=== PATIENT | female | born 1970 | race African-American/Black ===

== ENCOUNTER 2017-08-06 12:30 | Inpatient (IN) | payer MEDICARE ==
[2017-08-06 13:18] LABS: ANION GAP 13.4 mmol/L (8-16); BILIRUBIN - TOTAL 0.5 mg/dL (0.2-1.3); CARBON DIOXIDE 30.2 mmol/L (21.0-32.0); CREATININE - SERUM 1.2 mg/dL (0.6-1.3); POTASSIUM - SERUM 3.6 mmol/L (3.5-5.1); PROTEIN - SERUM 7.8 g/dL (6.4-8.2)
[2017-08-06 13:35] LABS: APPEARANCE CLOUDY (CLEAR); BACTERIA MANY /hpf (NONE SEEN); BILIRUBIN NEGATIVE (NEGATIVE); COLOR YELLOW (YELLOW); GLUCOSE NEGATIVE (NEGATIVE); KETONE MODERATE mg/dL (NEGATIVE); MUCUS >1+ /lpf (NONE SEEN); NITRITE NEGATIVE (NEGATIVE); PROTEIN TRACE mg/dL (NEGATIVE); RED CELLS - URINE 0-5 /hpf (0-5); SPECIFIC GRAVITY 1.015 (1.005-1.020)
[2017-08-06 13:48] LABS: BASOPHILS 0.2 % (0-2); EOSINOPHILS 0.4 % (0-7); HEMATOCRIT 41.3 % (36.0-48.0); HEMOGLOBIN 13.4 g/dL (12-16); IMMATURE GRANULOCYTES 0.4 % (0-5); LYMPHOCYTES 14.3 % (15-50); MCH 32.5 pg (26.0-34.0); MCHC 32.4 g/dL (31.0-37.0); MCV 100.2 fL (80.0-100.0); MEAN PLATELET VOLUME 10.5 fL (7.4-10.4); MONOCYTES 8.5 % (2-11); NEUTROPHILS 76.2 % (40-80); PLATELET COUNT 236 10x3/uL (130-400); RBC 4.12 10x6/uL (4.00-5.40); RDW 13.2 % (11.5-14.5); WBC 9.5 10x3/uL (4.8-10.8)
[2017-08-06 19:00] VITALS: BP 146/93
[2017-08-06] MEDS ORDERED: SCOPOLAMINE (20:39)
[2017-08-06] MEDS ORDERED: PHENERGAN25 M1 PO (20:40)
[2017-08-06] MEDS ORDERED: ZOFRAN ODT4 MG/UDTAB (20:41)
[2017-08-06] MEDS ORDERED: OMEPRAZOLE20 M1 PO (20:42)
[2017-08-06] MEDS ORDERED: HYDROCODON-ACE1 EAC7 PO (20:42)
[2017-08-06] MEDS ORDERED: KLONOPIN1 MG PO (20:44)
[2017-08-06] MEDS ORDERED: NEURONTIN 300300 MG PO (20:45)
--- NOTE | 2017-08-06 20:50 | NUR ---
REC FROM ER VIA WC. ALERT/ORIENTED X4. AMBULATED TO BED WITH STEADY GAIT. ER UNSUCCESSFUL AT ACCESSING VEIN FOR IV. PLACED ON TELEMETRY, SHOWS 108 ST ON MONITOR. C/O NAUSEA/VOMITING X 3 DAYS AND ABD PAIN. NPO PER ORDER. ORIENTED TO ROOM AND CALL LIGHT.
--- NOTE | 2017-08-06 23:30 | NUR ---
CALLED DR ANAND RE: MULTIPLE UNSUCCESSFUL ATTEMPTS FOR IV PLACEMENT. OBTAIN ORDER FOR PHENERGAN 25MG IM Q4H PRN AND OK TO PLACE IV IN FOOT.
--- NOTE | 2017-08-07 00:30 | NUR ---
ER NURSE "RODDY" UNSUCCESSFUL AT SITING IV; TWO ICU NURSES ALSO UNSUCCESSFUL AT SITING IV.
[2017-08-07 00:46] VITALS: BP 146/93; BMI 38.6
[2017-08-07 04:32] VITALS: BP 126/81
--- NOTE | 2017-08-07 05:01 | NUR ---
RESTING QUIETLY WITH EYES CLOSED. NO EPISODES OF VOMITING AFTER ADMINISTRATION OF PHENERGAN IM.
[2017-08-07 06:13] LABS: ALBUMIN 3.2 g/dL (3.4-5.0); ANION GAP 13.1 mmol/L (8-16); BILIRUBIN - DIRECT 0.14 mg/dL (0.00-0.30); BILIRUBIN - INDIRECT 0.45 mg/dL (0.00-1.00); BILIRUBIN - TOTAL 0.59 mg/dL (0.2-1.3); CALCIUM 8.2 mg/dL (8.5-10.1); CARBON DIOXIDE 29.1 mmol/L (21.0-32.0); CREATININE - SERUM 1.1 mg/dL (0.6-1.3); POTASSIUM - SERUM 3.2 mmol/L (3.5-5.1); PROTEIN - SERUM 7.3 g/dL (6.4-8.2)
--- NOTE | 2017-08-07 06:38 | NUR ---
DR ANAND CALLED REQUESTING TO CONTACT ANESTHESIOLOGIST VORTEX OPERATOR TO PLACE IV. I CALLED MILAGRO ACOSTA AND HE STATED HE WAS NOT ON DUTY UNTIL 7 AM. CALLED SURGERY AND INFORMED BY "SHIRLEY" ONE ANESTHESIOLOGIST IS WORKING ON A TEGAN CASE AND THE OTHER WITH DR GARNICA'S. SHE STATED IT WILL PROBABLY BE APPROX 30 MIN UNTIL ONE CAN COME.
--- NOTE | 2017-08-07 06:43 | NUR ---
RECEIVED CALL FROM SHIRLEY STATING AND [employer] CONSULTANT WILL COME AND GET PATIENT TO TAKE TO SURGERY TO PLACE IV. CONSENT NOT NECESSARY.
--- NOTE | 2017-08-07 07:10 | NUR ---
RECIEVD REPORT ON PATIENT, PATIENT IS ALERT AND ORIENTED AT THIS TIME. PATIENT IS ST ON MONITOR WITH A RATE OF 118. PATIENT IS NAUSEATED AT THIS TIME. ANESTHESIA IS COMING TO GET PATIENT TO START AN IV. PATIENT DENIES ANY NEEDS AT THIS TIME. WILL CONT TO MONITOR. CPOC
--- NOTE | 2017-08-07 07:15 | NUR ---
PATIENT GONE TO ANESTHESIA FOR IV PLACEMENT.
[2017-08-07 08:48] VITALS: BP 155/94
--- NOTE | 2017-08-07 10:00 | NUR ---
PATIENT VOMITTING, COLD RAG GIVEN. PHENAGREN HAS BEEN GIVEN, PATIENT ON ZOFRAN DRIP. WILL CONT TO MONITOR. CPOC
[2017-08-07 11:04] VITALS: BMI 38.6
--- NOTE | 2017-08-07 11:51 | NUR ---
PATIENT C/O PAIN IN HER BACK AND LEGS. NO PAIN MEDICATION ON EMAR. PAGED DR. WALL
[2017-08-07 12:04] VITALS: BP 133/92
--- NOTE | 2017-08-07 14:03 | NUR ---
PATIENT RESTING, SECOND BAG OF KCL HUNG PER PROTOCOL. BED LOW AND LOCKED. CALL LIGHT IN REACH. CPOC
--- NOTE | 2017-08-07 14:33 | NUR ---
PATIENT RESTING, NAD NOTED, AROUSES TO VOICE STATES PAIN IS GETTING BETTER. 04/21. WILL CONT TO MONITOR
--- NOTE | 2017-08-07 14:50 | NUR ---
PATIENT REFUSED SCDS, STATES SHE WALKS AROUND THE ROOM.
[2017-08-07 16:17] VITALS: BP 145/85
--- NOTE | 2017-08-07 16:45 | NUR ---
PATIENT GIVEN PHENAGREN FOR NAUSEA AND VOMITTING. DR MORA AT BEDSIDE. CPOC
--- NOTE | 2017-08-07 18:01 | NUR ---
PATIENT SLEEPING, AROUSES TO VOICE, STATED NAUSEA IS BETTER. DENIES ANY NEEDS. CPOC
--- NOTE | 2017-08-07 19:30 | NUR ---
PT IN BED. FAMILY AT BEDSIDE DENIES NEEDS AT THIS TIME WILL CONTINUE TO MONITOR
[2017-08-07 21:18] VITALS: BP 126/79
--- NOTE | 2017-08-08 02:17 | NUR ---
PT LYING IN BED, RESTING COMFORTABLY, EASILY ROUSABLE TO VERBAL STIMULI. CONTINUE TO MONITOR CLOSELY. BED LOW, CALL LIGHT IN REACH, SIDE RAILS X 2, HOB 25-30 DEGREES.
[2017-08-08 06:52] LABS: ALBUMIN 2.8 g/dL (3.4-5.0); ANION GAP 10.3 mmol/L (8-16); BILIRUBIN - DIRECT 0.12 mg/dL (0.00-0.30); BILIRUBIN - INDIRECT 0.39 mg/dL (0.00-1.00); BILIRUBIN - TOTAL 0.51 mg/dL (0.2-1.3); CALCIUM 7.9 mg/dL (8.5-10.1); CARBON DIOXIDE 32.9 mmol/L (21.0-32.0); CREATININE - SERUM 1.1 mg/dL (0.6-1.3); POTASSIUM - SERUM 3.2 mmol/L (3.5-5.1); PROTEIN - SERUM 6.5 g/dL (6.4-8.2)
--- NOTE | 2017-08-08 07:08 | HP ---
PATIENT: SALLY GONZÁLES MEDICAL RECORD: [id number] ACCOUNT: [id number] LOCATION:[address] : 74 ADMISSION DATE: 08/06/17 HISTORY AND PHYSICAL EXAMINATION HISTORY OF PRESENT ILLNESS: 47-year-old black female who states that a week ago, she was exposed to a child with vomiting and diarrhea. Her daughter got better, but she continued to have vomiting for a few days and diarrhea. The diarrhea ultimately resolved, but she continued to have nausea. She was seen at 4 different outpatient clinics and sent home with Phenergan and Zofran. She did not improve and ultimately was admitted to the [facility] in [place] 4 days before this admission. She states she had IV fluids. A CT scan showing a hiatal hernia. She felt better, was discharged yesterday became sick again last night, and came to [place] for reevaluation. She apparently has seen Dr. Nick in the past and had a remote EGD. 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 PAST SURGICAL HISTORY: Laparoscopic cholecystectomy. She has had a skin graft on both arms. Sebaceous cyst excision. She had . FAMILY HISTORY: Father in MVA. Mother of a heart attack. PAST MEDICAL HISTORY: Lupus, Sjogren's syndrome, hypertension, hiatal hernia, hysterectomy, sparing 1 tube and ovary remotely and an IUD. She states she recently was given Flagyl for vaginal infection prior to feeling nauseated. ALLERGIES: IODINE AND SHELLFISH. SOCIAL HISTORY: She is , has and 2 daughters. HOME MEDICATIONS: Phenergan 25 q.4 hours for nausea, gabapentin 300 mg t.i.d., [place] 5/325 one q.6 hours for pain, Klonopin 1 mg b.i.d. p.r.n. anxiety, Zofran 4 mg Reditabs 2 tabs p.r.n., omeprazole 20 mg a day, amlodipine 5 mg daily, and metoprolol dose unknown. REVIEW OF SYSTEMS: GENERAL: No fever or fatigue, has had poor appetite due to nausea. HEENT: No recent visual change, sinus congestion, or sore throat. RESPIRATORY: No SOB or cough. CARDIAC: No exertional or rest chest pain, claudication, or edema. GASTROINTESTINAL: Diarrhea has resolved, not having intermittent vomiting and nausea. No hematemesis, bright red blood per rectum. Denies fatty food intolerance. ENDOCRINE: Denies polyuria, polydipsia, heat or cold intolerance. NEUROLOGIC: No history of stroke, TIA, or vascular headaches. PSYCHIATRIC: Denies depress mood. PHYSICAL EXAMINATION: VITAL SIGNS: The patient is afebrile. Blood pressure 130/80, heart rate 80. GENERAL: The patient is alert and oriented and fairly comfortable, lying on ED gurney. HEENT: Unremarkable except for dry mucous membrane. Her eyes were clear. NECK: Supple. CHEST: Clear. HEART: Mildly tachycardic. HISTORY AND PHYSICAL [id number] GONZÁLES,SALLY ABDOMEN: Obese, soft, minimally tender in left lower quadrant. No rebound. Bowel sounds are active. PELVIC: Deferred. EXTREMITIES: No gross edema. INTEGUMENT: No rash. SKIN: Fair turgor. PSYCHIATRIC: Denies depressed mood. LABORATORY DATA: Shows white count of 9500 with normal diff, H&H of 13 and 41 respectively. MCV is 100.2. Chemistry unremarkable. Creatinine is 1.2. Liver function is normal, but amylase is 259. Urinalysis is cloudy, moderate ketones, 2+ blood, 5-10 white cells, many bacteria. IMAGING: CT scan of the abdomen, according to Dr. Guzman shows a hiatal hernia with no acute changes. ASSESSMENT: 1. Recurrent nausea and vomiting, etiology unknown. 2. Post-cholecystectomy. 3. Hypertension. 4. Obesity. 5. Anxiety. 6. Chronic pain. 7. Possible urinary tract infection. PLAN: Culture urine. She will be placed on antibiotics empirically. placed on IV fluids and antiemetics. Further workup pending clinical course. TRANSINT:[id number] Voice Confirmation ID: [id number] DOCUMENT ID: [id number] RYAN ANAND MD at 0708 CC: [id number] DICTATION DATE: 08/06/172117 PHOTOENGRAVING SKETCH MAKER: 08/06/17 2332 [place] [id number]
[2017-08-08 07:29] LABS: BASOPHILS 0.1 % (0-2); EOSINOPHILS 1.1 % (0-7); HEMATOCRIT 33.7 % (36.0-48.0); HEMOGLOBIN 11.1 g/dL (12-16); IMMATURE GRANULOCYTES 0.3 % (0-5); LYMPHOCYTES 14.3 % (15-50); MCH 32.3 pg (26.0-34.0); MCHC 32.9 g/dL (31.0-37.0); MEAN PLATELET VOLUME 9.8 fL (7.4-10.4); MONOCYTES 9.9 % (2-11); NEUTROPHILS 74.3 % (40-80); PLATELET COUNT 224 10x3/uL (130-400); RBC 3.44 10x6/uL (4.00-5.40); RDW 13.3 % (11.5-14.5); WBC 7.6 10x3/uL (4.8-10.8)
--- NOTE | 2017-08-08 07:32 | NUR ---
AM ROUNDS - PT IN BED AND AWAKE AT THIS TIME. MONITOR SHOWING SR, HR 95. C/O NAUSEA. PT HAS A ZOFRAN DRIP. PT IS A&O. PT IS ON ROOM AIR. RIGHT IJ, LR AT 100CC/HR. BED AT LOWEST POSITION, CALL SILVA IN USE/REACH, SIDE RAILS UP X2. WILL CONTINUE TO MONITOR
[2017-08-08 08:15] VITALS: BP 117/83
--- NOTE | 2017-08-08 08:54 | NUR ---
UNABLE TO COVER K+ AT THIS TIME. PT IS NPO FOR EGD AT 1030.
[2017-08-08 09:58] LABS: HCG URINE NEGATIVE (NEGATIVE)
[2017-08-08 16:54] VITALS: BP 158/92
--- NOTE | 2017-08-08 17:31 | NUR ---
PT IN BED WITH SISTER AT BEDSIDE. WILL CONTINUE TO MONITOR
[2017-08-08 19:00] VITALS: BP 152/101
--- NOTE | 2017-08-08 19:21 | NUR ---
ASSESSMENT COMPLETE, A&O. RIGHT IJ WITH ZOFRAN INFUSING AT 4.7, DRSG C/D/I. PT DENIES PAIN OR NEEDS, BED LOW, CL IN REACH.
[2017-08-09] VITALS: BP 151/87
--- NOTE | 2017-08-09 00:54 | NUR ---
CHILD CARE ATTENDANT AT BEDSIDE TO OBTAIN VITALS, CALL LIGHT IN REACH. WILL CONTINUE WITH PLAN OF CARE.
--- NOTE | 2017-08-09 02:33 | NUR ---
MORPHINE 2 MG GIVEN AT PT REQUEST FOR C/O PAIN TO LEGS, RATES PAIN AT AN 8 ON PAIN SCALE. POTASSIUM RIDER INFUSING PER PROTOCOL.
[2017-08-09 04:00] VITALS: BP 148/100
--- NOTE | 2017-08-09 05:07 | NUR ---
RESTING WITH EYES CLOSED, RESPERATIONS EVEN, NO S/S DISTRESS NOTED.
[2017-08-09 05:08] LABS: BASOPHILS 0.3 % (0-2); EOSINOPHILS 0.7 % (0-7); HEMOGLOBIN 10.5 g/dL (12-16); IMMATURE GRANULOCYTES 0.1 % (0-5); LYMPHOCYTES 11.9 % (15-50); MCH 32.1 pg (26.0-34.0); MCHC 32.8 g/dL (31.0-37.0); MCV 97.9 fL (80.0-100.0); MEAN PLATELET VOLUME 9.6 fL (7.4-10.4); MONOCYTES 8.6 % (2-11); NEUTROPHILS 78.4 % (40-80); PLATELET COUNT 181 10x3/uL (130-400); RBC 3.27 10x6/uL (4.00-5.40); WBC 7.3 10x3/uL (4.8-10.8)
[2017-08-09 05:33] LABS: ALBUMIN 2.7 g/dL (3.4-5.0); ANION GAP 6.1 mmol/L (8-16); BILIRUBIN - TOTAL 0.4 mg/dL (0.2-1.3); CALCIUM 7.7 mg/dL (8.5-10.1); CARBON DIOXIDE 31.2 mmol/L (21.0-32.0); POTASSIUM - SERUM 3.3 mmol/L (3.5-5.1)
--- NOTE | 2017-08-09 07:16 | NUR ---
AM ROUNDS COMPLETED. INTRODUCED MYSELF TO PT PRIMARY RN FOR TODAYS SHIFT. PT A&O RESTING QUIETLY IN BED. SHIFT ASSESSMENT COMPLETED. PT DENIES ANY CURRENT NEEDS. CL IN REACH, BED IN LOWEST, SIDE RAILS X2 AND BED ALARM ON. WILL CPOC.
[2017-08-09 08:00] VITALS: BP 141/97
--- NOTE | 2017-08-09 08:40 | NUR ---
POTASSIUM HUNG FOR EP REPLACEMENT. PT STATES SHE CANT STOMACH THE ORAL FORM WITHOUT BEING VERY NAUSEATED. PT IS STILL ON ZOFRAN DRIP AND ITS HELPING HOWEVER STILL GETS NAUSEATED AT TIMES. PT C/O PAIN ALL OVER AND WAS PROVIDED WITH PRN PAIN MEDICATION. PT DENIES ANY FURTHER NEEDS AT THIS TIME. CL IN REACH, BED IN LOWEST, SIDE RAILS X2. WILL CPOC.
--- NOTE | 2017-08-09 11:18 | NUR ---
Patient Name: SALLY GAYTAN Admission Status: ER Accout number: [id number] Admission Date: 08-06-2017 : 1970 Admission Diagnosis:NAUSEA WITH VOMITING, UNSPECIFIED Attending: RYAN ANAND Current LOS: 3 Anticipated DC Date: 08-10-2017 Planned Disposition: Home or Self Care Primary Insurance: [facility] Discharge Planning Comments: CM met with patient to assess discharge planning / needs. Patient states she plans to return home where she lives with her . States her home environment is safe. States her , Diego Gaytan will drive her home upon discharge. Denies any discharge needs. Declined home health services. CM served IMM, copy to patient, original in chart. CM will continue to follow and assist PRN with discharge planning / needs. Is the patient Alert and Oriented? Yes * How many steps to enter\exit or inside your home? 3 * PCP Dr Arreola in [place]. * Pharmacy [facility]. * Preadmission Environment Home with Family * ADLs Independent * Equipment None * List name and contact numbers for known caregivers / representatives who currently or will assist patient after discharge: Spouse, Diego Gaytan [phone] * Community resources currently utilized None * Additional services required to return to the preadmission environment? No * Can the patient safely return to the preadmission environment? Yes * Has this patient been hospitalized within the prior 30 days at any hospital? Yes
[2017-08-09 12:00] VITALS: BP 121/82
--- NOTE | 2017-08-09 15:00 | NUR ---
R.IJ TRIPLE LUMEN CVL DRSG CHANGED USING STERILE TECHNIQUE IT WAS STARTING TO PEEL OFF AFTER SHE SHOWERED. PT C/O ABDOMINAL PAIN COMING BACK AND PAIN AT CVL SITE. PROVIDED PT WITH PRN MORPHINE REQUESTED. PT VOICED THANKS AND WANTS TO TRY AND GET SOME REST. NO FURTHER NEEDS AT THIS TIME. CL IN REACH. WILL CPOC.
[2017-08-09 16:00] VITALS: BP 139/86
--- NOTE | 2017-08-09 16:00 | NUR ---
PT WANTING TO TRY A REGULAR DINNER AND SEE IF SHE CAN HOLD IT DOWN. NO CURRENT NEEDS AT THIS TIME. VISITORS AT BEDSIDE. WILL CPOC.
--- NOTE | 2017-08-09 17:33 | NUR ---
POTASSIUM RECHECK CAME BACK AND IS NOW 4.0. NO FURTHER ACTION NEEDED AT THIS TIME. WILL CPOC.
--- NOTE | 2017-08-09 19:26 | NUR ---
PT C/O NAUSEA. ZOFRAN DRIP GOING AT 4.7 TO RIGHT IJ. PT C/O PAIN IN STOMACH BACK LEGS. WILL GIVE ORDERED PAIN MED. PT DENIES ANY OTHER NEEDS. NO S/S OF DISTRESS. WILL CPOC
[2017-08-09 20:00] VITALS: BP 150/99
[2017-08-10] VITALS: BP 166/72
--- NOTE | 2017-08-10 00:20 | NUR ---
PT RESTING IN BED. STATES PAIN HAS BEEN BEING MANAGED TONIGHT. PT DENIES ANY NEEDS. NO S/S OF DISTRESS. WILL CPOC
[2017-08-10 04:00] VITALS: BP 125/72
--- NOTE | 2017-08-10 06:33 | NUR ---
PT RESTING IN BED. 04/21 IN STOMACH. PAIN MED GIVEN. PT STATES NAUSEA FEELS BETTER. PT STATES SHE FEELS SHE COULD TRY AND EAT SOME FOOD THIS MORNING. STATES SHE THAT SHE BELIVES SHE MAY GO HOME. PT DENIES ANY NEEDS. NO S/S OF DISTRESS. WILL CPOC
[2017-08-10 07:31] LABS: CALCIUM 7.7 mg/dL (8.5-10.1); CARBON DIOXIDE 29.7 mmol/L (21.0-32.0); CREATININE - SERUM 1.2 mg/dL (0.6-1.3); POTASSIUM - SERUM 3.7 mmol/L (3.5-5.1)
--- NOTE | 2017-08-10 07:54 | NUR ---
AM ROUNDING- RECIEVED REPORT FROM PIECE WORKER NURSE ABA. PT IS CURRENTLY SITTING UP IN BED WITH EYES OPEN RESTING. ON ROOM AIR. ON MONITOR SHOWING ST, HR 104. RIGHT IJ TRIPLE LUMEN SEEN WITH ZOFRAN RUNNING AT 4.7CC AND D5W 1/2 NS WITH 10KCL+ RUNNING AT 75CC IN ANOTHER PORT. PT DENIES ANY NEED AT THIS TIME. PT STATES THEY JUST GAVE HER PAIN MEDICATION. WILL CONTINUE TO MONITOR AND CONTINUE WITH PLAN OF CARE.
[2017-08-10 08:00] VITALS: BP 118/72
[2017-08-10] MEDS ORDERED: NYSTATIN ORAL SU5 ML PO (08:17)
[2017-08-10] MEDS ORDERED: NORVASC2.5 MG PO (08:17)
[2017-08-10] MEDS ORDERED: PROTONIX40 MG PO (08:18)
[2017-08-10] MEDS ORDERED: CARAFATE1 G PO (08:19)
[2017-08-10] MEDS ORDERED: PEPCID20 MG PO (08:19)
[2017-08-10] MEDS ORDERED: DIFLUCAN200 MG PO (08:25)
--- NOTE | 2017-08-10 11:01 | NUR ---
PT FOR DISCHARGE. IJ TO BE D/CD. DRESSING REMOVED WITH NO SIGNS OF INFECTION OR BLEEDING. TWO SUTURES REMOVED. IJ REMOVED WITH TIP INTACT. NO SIGNS OF INFECTION. PRESSURE HELD TO NECK FOR 5 MINS. NO BLEEDING. PRESSURE DRESSING APPLIED AND PT INSTRUCTED ABOUT BLEEDING PRECAUTIONS. PT JONATHAN WELL.
[2017-08-10 11:31] VITALS: BP 141/85
--- NOTE | 2017-08-10 11:42 | NUR ---
MERON OLSEN, VASCULAR ACCESS NURSE SITED PT WITH 22G IV CATHETER TO LEFT HAND. IV FLUIDS STARTED ORDERED.
--- NOTE | 2017-08-10 11:43 | NUR ---
MARGOTH GOMEZ, IRONWORKER WIRE FENCE ERECTOR REMOVED PTS IJ TO RIGHT NECK AREA. NO BLEEDING SEEN FROM SITE. PT INSTRUCTED TO ALERT STAFF IF ANY BLEEDING. PT INSTRUCTED TO HOLD PRESSURE WHEN D/C'D IF BLEEDING SEEN AND CALL 911. PT AGREES. D/C INSTRUCTIONS EXPLAINED TO PT. D/C PAPERWORK SIGNED BY PT AND PLACED IN CHART. PT IS AWAITING RIDE TO GET HERE.
--- NOTE | 2017-08-10 12:27 | NUR ---
PT D/C HOME WITH GUEST. PT WALKED OUT TO D/C. THIS NURSE WAS STANDBY ASSIST WITH GUEST MEMBER.
== END 2017-08-10 12:27 | disposition home or self-care (01) | DRG 384 ==
LOC: D.ER 12:30 → D.M2 18:30
PROVIDERS: Anesthesiology; Emergency Medicine; Internal Medicine Gastroenterology; ADMIT Family Medicine
PROC: 0DB68ZX Excision of Stomach, Via Natural or Artificial Opening Endoscopic, Diagnostic (ICD-10-PCS; 2017-08-08)
PROC: 0DB58ZX Excision of Esophagus, Via Natural or Artificial Opening Endoscopic, Diagnostic (ICD-10-PCS; 2017-08-08)
PROC: 0DB98ZX Excision of Duodenum, Via Natural or Artificial Opening Endoscopic, Diagnostic (ICD-10-PCS; principal; 2017-08-08 10:30)
DX: K25.9 Gastric ulcer, unspecified as acute or chronic, without hemorrhage or perforation (principal); B37.81 Candidal esophagitis; K52.9 Noninfective gastroenteritis and colitis, unspecified; E66.9 Obesity, unspecified; F41.9 Anxiety disorder, unspecified; G89.29 Other chronic pain; E87.6 Hypokalemia; I10 Essential (primary) hypertension; M35.00 Sjogren syndrome, unspecified; M32.9 Systemic lupus erythematosus, unspecified; K44.9 Diaphragmatic hernia without obstruction or gangrene; K29.00 Acute gastritis without bleeding; K29.80 Duodenitis without bleeding